=== PATIENT | male | born 1960 | race Hispanic/Latino ===

== ENCOUNTER 2018-10-31 16:19 | Emergency (ER) | payer BC ==
[2018-10-31] MEDS ORDERED: Ketorolac Tromethamine 30 MG/ML VIAL ONE (17:55)
[2018-10-31] MEDS ORDERED: predniSONE 20 MG TAB ONE (17:55)
== END 2018-10-31 18:34 | disposition home or self-care (01) ==
LOC: SCSER 16:19
DX: M54.6 Pain in thoracic spine (principal); I10 Essential (primary) hypertension; Z79.899 Other long term (current) drug therapy
CPT/HCPCS: 96372; J1885; J7512

== ENCOUNTER 2021-04-09 17:39 | Emergency (ER) | payer BC ==
[2021-04-09] MEDS ORDERED: Ibuprofen 800 MG TAB ONE (19:19)
== END 2021-04-09 20:57 | disposition home or self-care (01) ==
LOC: ERS 17:39
DX: R43.2 Parageusia (principal); R43.0 Anosmia; Z20.822 Contact with and (suspected) exposure to COVID-19; I10 Essential (primary) hypertension; E78.5 Hyperlipidemia, unspecified
CPT/HCPCS: 71045

== ENCOUNTER 2021-04-11 13:21 | Inpatient (IN) | payer BC ==
[~2021-04-11 13:21] MED LIST: Iopamidol-370 76% 500 ML 1 ML ONE
[2021-04-11] MEDS ORDERED: Dexamethasone 10 MG/ML VIAL ONE (14:52)
[2021-04-11 14:53] LABS: ALT (SGPT) 18 U/L (8-55); AST (SGOT) 26 U/L (5-34); Albumin 3.2 g/dL (3.5-5.0); Alkaline Phosphatase 85 U/L (40-110); Anion Gap 13 mmol/L (10-20); BUN (Urea Nitrogen) 9 mg/dL (8.4-25.7); Bilirubin, Total 0.6 mg/dL (0.2-1.2); Calc. Creatinine Clearance 0 mL/min (70-130); Calcium 7.8 mg/dL (7.8-10.44); Carbon Dioxide 25 mmol/L (22-29); Chloride 103 mmol/L (98-107); Globulin 2.7 g/dL (2.4-3.5); Glucose 185 mg/dL (70-105); Potassium 3.9 mmol/L (3.5-5.1); Protein, Total 5.9 g/dL (6.0-8.3); Sodium 137 mmol/L (136-145)
[2021-04-11 14:54] LABS: Lactic Acid 1.7 mmol/L (0.5-2.2)
[2021-04-11 14:55] LABS: #Lymphocytes 0.4 thou/uL (1.20-3.40); #Monocytes 0.1 thou/uL (0.11-0.59); #Neutrophils 11.1 thou/uL (1.40-6.50); %Lymphocytes 3.4 % (21.0-51.0); %Monocytes 1.2 % (0.0-10.0); %Neutrophils 95.5 % (42.0-75.0); Hemoglobin 12.5 g/dL (14.0-18.0); Mean Corpuscular HGB CONC 32.1 g/dL (32.0-36.0); Mean Corpuscular Hemoglobin 31.2 pg (27.0-31.0); Mean Corpuscular Volume 97.2 fL (78.0-98.0); Mean Platelet Volume 7.3 fL (7.4-10.4); Platelet Count 163 thou/uL (130-400); RBC Distribution Width 11.9 % (11.5-14.5); Red Blood Cell (RBC) Count 4.01 mill/uL (4.70-6.10); Troponin I Less than 0.010 ng/mL (< 0.028); White Blood Cell (WBC) Count 11.6 thou/uL (4.8-10.8)
[2021-04-11] MEDS ORDERED: Dextrose 50% Abboject 50 ML SYRINGE SLOW IVP PRN (15:10)
[2021-04-11] MEDS ORDERED: Dextrose 5% in Water 1,000 ML IV PRN (15:10)
[2021-04-11 16:08] VITALS: BMI 28.8
[2021-04-11] MEDS ORDERED: Pharmacy to Dose REMDESIVIR IVPB PRN (17:08)
[2021-04-11 17:11] LABS: Hemoglobin A1c 5.3 % (4.0-6.0)
[2021-04-11] MEDS: Dexamethasone 10 MG/ML VIAL SLOW IVP SCH (20:42)
[2021-04-11] MEDS: Acetaminophen 325 MG TAB PO PRN (20:42)
[2021-04-11] MEDS ORDERED: Famotidine 20 MG TAB PO SCH (21:00)
[2021-04-11 23:51] LABS: SARS-CoV-2 PCR by NAA DETECTED (NotDetected)
[2021-04-12 06:50] LABS: #Lymphocytes 0.5 thou/uL (1.20-3.40); #Monocytes 0.1 thou/uL (0.11-0.59); #Neutrophils 8.5 thou/uL (1.40-6.50); %Lymphocytes 5.1 % (21.0-51.0); %Monocytes 1.5 % (0.0-10.0); %Neutrophils 93.3 % (42.0-75.0); Hemoglobin 13.4 g/dL (14.0-18.0); Mean Corpuscular HGB CONC 33.3 g/dL (32.0-36.0); Mean Corpuscular Hemoglobin 32.6 pg (27.0-31.0); Mean Corpuscular Volume 97.8 fL (78.0-98.0); Mean Platelet Volume 7.2 fL (7.4-10.4); Platelet Count 182 thou/uL (130-400); RBC Distribution Width 11.9 % (11.5-14.5); Red Blood Cell (RBC) Count 4.11 mill/uL (4.70-6.10); White Blood Cell (WBC) Count 9.1 thou/uL (4.8-10.8)
[2021-04-12 07:13] LABS: Anion Gap 13 mmol/L (10-20); BUN (Urea Nitrogen) 14 mg/dL (8.4-25.7); Calc. Creatinine Clearance 114 mL/min (70-130); Calcium 8.5 mg/dL (7.8-10.44); Carbon Dioxide 25 mmol/L (22-29); Chloride 107 mmol/L (98-107); Glucose 175 mg/dL (70-105); Potassium 4.4 mmol/L (3.5-5.1); Sodium 141 mmol/L (136-145)
[2021-04-12] MEDS: Ascorbic Acid 500 mg Chewable Tablet PO SCH (07:57)
[2021-04-12] MEDS: Cholecalciferol (Vitamin D3) 400 UNITS TAB PO SCH (07:58)
[2021-04-12] MEDS: Enoxaparin Sodium 40 MG/0.4 ML SYRINGE SC SCH (07:58)
[2021-04-12] MEDS: Dexamethasone 10 MG/ML VIAL SLOW IVP SCH ×2 (07:58→20:42)
[2021-04-12] MEDS: Zinc Sulfate 220 MG CAP PO SCH (07:58)
[2021-04-12] MEDS ORDERED: Dexamethasone 4 MG TAB PO SCH (08:00)
[2021-04-12] MEDS ORDERED: Ezetimibe 10 MG TAB PO SCH (12:30)
[2021-04-12] MEDS ORDERED: Amlodipine 5 MG TAB PO SCH (12:30)
[2021-04-12] MEDS: HumaLOG 300 UNITS/3 ML VIAL SC PRN ×3 (12:38→20:57)
[2021-04-12] MEDS: Acetaminophen 325 MG TAB PO PRN (20:43)
[2021-04-13 07:12] LABS: #Lymphocytes 0.5 thou/uL (1.20-3.40); #Monocytes 0.2 thou/uL (0.11-0.59); %Basophils 0.1 % (0.0-1.0); %Eosinophils 0.1 % (0.0-10.0); %Lymphocytes 4.2 % (21.0-51.0); %Monocytes 1.8 % (0.0-10.0); %Neutrophils 93.8 % (42.0-75.0); Mean Corpuscular HGB CONC 31.4 g/dL (32.0-36.0); Mean Corpuscular Hemoglobin 30.7 pg (27.0-31.0); Mean Corpuscular Volume 97.7 fL (78.0-98.0); Platelet Count 272 thou/uL (130-400); RBC Distribution Width 11.8 % (11.5-14.5); Red Blood Cell (RBC) Count 4.24 mill/uL (4.70-6.10); White Blood Cell (WBC) Count 12.7 thou/uL (4.8-10.8)
[2021-04-13 07:29] LABS: Anion Gap 13 mmol/L (10-20); BUN (Urea Nitrogen) 17 mg/dL (8.4-25.7); Calc. Creatinine Clearance 109 mL/min (70-130); Calcium 8.7 mg/dL (7.8-10.44); Carbon Dioxide 24 mmol/L (22-29); Chloride 106 mmol/L (98-107); Glucose 192 mg/dL (70-105); Potassium 4.1 mmol/L (3.5-5.1); Sodium 139 mmol/L (136-145)
[2021-04-13] MEDS: Ascorbic Acid 500 mg Chewable Tablet PO SCH (08:25)
[2021-04-13] MEDS: Amlodipine 5 MG TAB PO SCH (08:25)
[2021-04-13] MEDS: Ezetimibe 10 MG TAB PO SCH (08:25)
[2021-04-13] MEDS: Cholecalciferol (Vitamin D3) 400 UNITS TAB PO SCH (08:25)
[2021-04-13] MEDS: Zinc Sulfate 220 MG CAP PO SCH (08:25)
[2021-04-13] MEDS: Acetaminophen 325 MG TAB PO PRN (08:26)
[2021-04-13] MEDS: Dexamethasone 10 MG/ML VIAL SLOW IVP SCH ×2 (08:26→21:13)
[2021-04-13] MEDS: Enoxaparin Sodium 40 MG/0.4 ML SYRINGE SC SCH ×2 (08:27→21:13)
[2021-04-13] MEDS ORDERED: Piperacillin/Tazobactam 3.375 GM in Sodium Chloride 0.9% 100 ML IVPB SCH ×2 (10:15→16:00)
[2021-04-13] MEDS ORDERED: Furosemide 100 MG/10 ML VIAL SLOW IVP SCH ×2 (10:30→13:00)
[2021-04-13] MEDS: Piperacillin/Tazobactam 3.375 GM in Sodium Chloride 0.9% 100 ML IVPB SCH ×3 (12:30→21:13)
[2021-04-13] MEDS: HumaLOG 300 UNITS/3 ML VIAL SC PRN ×3 (12:45→21:37)
[2021-04-13] MEDS: Furosemide 40 MG/4 ML VIAL SLOW IVP SCH (14:40)
[2021-04-13] MEDS: Vancomycin 1 GM in Premix Bag 1 BAG IVPB SCH (15:15)
[2021-04-13] MEDS ORDERED: VANCOMYCIN 1.25 GM/250 ML BAG 1.25 GM in Premix Bag 1 BAG IVPB SCH (21:00)
[2021-04-14] MEDS: Vancomycin 1 GM in Premix Bag 1 BAG IVPB SCH ×2 (02:41→13:03)
[2021-04-14] MEDS: Piperacillin/Tazobactam 3.375 GM in Sodium Chloride 0.9% 100 ML IVPB SCH ×3 (05:45→21:33)
[2021-04-14] MEDS: Furosemide 40 MG/4 ML VIAL SLOW IVP SCH ×2 (05:46→13:03)
[2021-04-14 06:55] LABS: Hemoglobin 14.3 g/dL (14.0-18.0); Mean Corpuscular HGB CONC 32.4 g/dL (32.0-36.0); Mean Corpuscular Hemoglobin 31.3 pg (27.0-31.0); Mean Corpuscular Volume 96.4 fL (78.0-98.0); Mean Platelet Volume 6.4 fL (7.4-10.4); Platelet Count 328 thou/uL (130-400); RBC Distribution Width 11.7 % (11.5-14.5); Red Blood Cell (RBC) Count 4.58 mill/uL (4.70-6.10); White Blood Cell (WBC) Count 12.7 thou/uL (4.8-10.8)
[2021-04-14 07:13] LABS: Anion Gap 14 mmol/L (10-20); BUN (Urea Nitrogen) 26 mg/dL (8.4-25.7); Calc. Creatinine Clearance 80 mL/min (70-130); Calcium 8.7 mg/dL (7.8-10.44); Carbon Dioxide 30 mmol/L (22-29); Chloride 101 mmol/L (98-107); Glucose 164 mg/dL (70-105); Sodium 141 mmol/L (136-145)
[2021-04-14 07:23] LABS: Band 12 % (5-11); Lymphocytes 1 % (21-51); MDiff Complete? YES; Monocytes 1 % (0-10); Neutrophil 86 % (42-75); Platelet Morphology Comment Appears Adequate; RBC Morphology Normal
[2021-04-14] MEDS: Ezetimibe 10 MG TAB PO SCH (08:36)
[2021-04-14] MEDS: Cholecalciferol (Vitamin D3) 400 UNITS TAB PO SCH (08:36)
[2021-04-14] MEDS: Zinc Sulfate 220 MG CAP PO SCH (08:36)
[2021-04-14] MEDS: Ascorbic Acid 500 mg Chewable Tablet PO SCH (08:36)
[2021-04-14] MEDS: Amlodipine 5 MG TAB PO SCH (08:37)
[2021-04-14] MEDS: Dexamethasone 10 MG/ML VIAL SLOW IVP SCH ×2 (08:37→21:45)
[2021-04-14] MEDS: Enoxaparin Sodium 40 MG/0.4 ML SYRINGE SC SCH ×2 (09:01→21:32)
[2021-04-14] MEDS: HumaLOG 300 UNITS/3 ML VIAL SC PRN (13:44)
[2021-04-14] MEDS ORDERED: Polyethylene Glycol 3350 17 GM Packet PO SCH (18:00)
[2021-04-14] MEDS: Senokot S 8.6-50 MG TAB PO SCH (21:46)
[2021-04-14] MEDS: Acetaminophen 325 MG TAB PO PRN (21:48)
[2021-04-15 01:14] LABS: Vancomycin, Trough 8.5 ug/mL
[2021-04-15] MEDS: VANCOMYCIN 1.25 GM/250 ML BAG 1.25 GM in Premix Bag 1 BAG IVPB SCH ×2 (02:50→17:05)
[2021-04-15] MEDS: Piperacillin/Tazobactam 3.375 GM in Sodium Chloride 0.9% 100 ML IVPB SCH ×3 (05:23→21:39)
[2021-04-15] MEDS: HumaLOG 300 UNITS/3 ML VIAL SC PRN ×3 (06:43→21:39)
[2021-04-15] MEDS: Vancomycin 1 GM in Premix Bag 1 BAG IVPB SCH (07:00)
[2021-04-15 07:35] LABS: Anion Gap 17 mmol/L (10-20); BUN (Urea Nitrogen) 30 mg/dL (8.4-25.7); Calc. Creatinine Clearance 81 mL/min (70-130); Calcium 8.5 mg/dL (7.8-10.44); Carbon Dioxide 28 mmol/L (22-29); Chloride 99 mmol/L (98-107); Glucose 217 mg/dL (70-105); Potassium 4.5 mmol/L (3.5-5.1); Sodium 139 mmol/L (136-145)
[2021-04-15 08:28] LABS: Hemoglobin 14.6 g/dL (14.0-18.0); Mean Corpuscular HGB CONC 33.5 g/dL (32.0-36.0); Mean Corpuscular Hemoglobin 32.1 pg (27.0-31.0); Mean Platelet Volume 6.3 fL (7.4-10.4); Platelet Count 353 thou/uL (130-400); RBC Distribution Width 11.4 % (11.5-14.5); Red Blood Cell (RBC) Count 4.53 mill/uL (4.70-6.10); White Blood Cell (WBC) Count 10.8 thou/uL (4.8-10.8)
[2021-04-15 08:29] LABS: Band 9 % (5-11); Lymphocytes 8 % (21-51); MDiff Complete? YES; Metamyelocyte 3 % (0-0); Monocytes 2 % (0-10); Neutrophil 77 % (42-75); Platelet Morphology Comment Appears Adequate; RBC Morphology Normal; Reactive Lymphocytes 1 % (0-10)
[2021-04-15] MEDS: Enoxaparin Sodium 40 MG/0.4 ML SYRINGE SC SCH ×2 (08:32→21:40)
[2021-04-15] MEDS: Amlodipine 5 MG TAB PO SCH (08:33)
[2021-04-15] MEDS: Dexamethasone 10 MG/ML VIAL SLOW IVP SCH (08:33)
[2021-04-15] MEDS: Zinc Sulfate 220 MG CAP PO SCH (08:33)
[2021-04-15] MEDS: Ezetimibe 10 MG TAB PO SCH (08:33)
[2021-04-15] MEDS: Cholecalciferol (Vitamin D3) 400 UNITS TAB PO SCH (08:33)
[2021-04-15] MEDS: Senokot S 8.6-50 MG TAB PO SCH ×3 (08:33→21:40)
[2021-04-15] MEDS: Ascorbic Acid 500 mg Chewable Tablet PO SCH (08:33)
[2021-04-16] MEDS: VANCOMYCIN 1.25 GM/250 ML BAG 1.25 GM in Premix Bag 1 BAG IVPB SCH ×2 (04:34→17:33)
[2021-04-16] MEDS: Chloraseptic Spray 180 ml Bottle PO PRN ×2 (04:35→20:40)
[2021-04-16] MEDS: Piperacillin/Tazobactam 3.375 GM in Sodium Chloride 0.9% 100 ML IVPB SCH ×3 (05:31→20:40)
[2021-04-16 07:20] LABS: #Lymphocytes 0.9 thou/uL (1.20-3.40); #Monocytes 0.6 thou/uL (0.11-0.59); #Neutrophils 6.5 thou/uL (1.40-6.50); %Eosinophils 0.4 % (0.0-10.0); %Lymphocytes 11.5 % (21.0-51.0); %Monocytes 7.9 % (0.0-10.0); %Neutrophils 80.2 % (42.0-75.0); Hemoglobin 13.1 g/dL (14.0-18.0); Mean Corpuscular Hemoglobin 31.8 pg (27.0-31.0); Mean Corpuscular Volume 96.4 fL (78.0-98.0); Mean Platelet Volume 6.1 fL (7.4-10.4); Platelet Count 343 thou/uL (130-400); RBC Distribution Width 11.4 % (11.5-14.5); Red Blood Cell (RBC) Count 4.12 mill/uL (4.70-6.10); White Blood Cell (WBC) Count 8.1 thou/uL (4.8-10.8)
[2021-04-16 07:37] LABS: Anion Gap 12 mmol/L (10-20); BUN (Urea Nitrogen) 20 mg/dL (8.4-25.7); Calc. Creatinine Clearance 92 mL/min (70-130); Calcium 8.1 mg/dL (7.8-10.44); Carbon Dioxide 28 mmol/L (22-29); Chloride 105 mmol/L (98-107); Glucose 104 mg/dL (70-105); Potassium 4.5 mmol/L (3.5-5.1); Sodium 140 mmol/L (136-145)
[2021-04-16] MEDS: Enoxaparin Sodium 40 MG/0.4 ML SYRINGE SC SCH ×2 (09:52→20:40)
[2021-04-16] MEDS: Cholecalciferol (Vitamin D3) 400 UNITS TAB PO SCH (09:52)
[2021-04-16] MEDS: Ezetimibe 10 MG TAB PO SCH (09:52)
[2021-04-16] MEDS: Amlodipine 5 MG TAB PO SCH (09:52)
[2021-04-16] MEDS: Ascorbic Acid 500 mg Chewable Tablet PO SCH (09:52)
[2021-04-16] MEDS: Zinc Sulfate 220 MG CAP PO SCH (09:52)
[2021-04-16] MEDS: Senokot S 8.6-50 MG TAB PO SCH ×2 (09:53→20:40)
[2021-04-16] MEDS: Dexamethasone 10 MG/ML VIAL SLOW IVP SCH (09:53)
[2021-04-16] MEDS: Acetaminophen 325 MG TAB PO PRN (11:36)
[2021-04-16] MEDS: Benzonatate 100 MG CAP PO PRN ×2 (11:37→20:46)
[2021-04-16] MEDS: HumaLOG 300 UNITS/3 ML VIAL SC PRN ×3 (13:48→20:40)
[2021-04-16 16:51] LABS: Vancomycin, Trough 8.9 ug/mL
[2021-04-16] MEDS: VANCOMYCIN 1.75 GM/350 ML BAG 1.75 GM in Premix Bag 1 BAG IVPB SCH (17:49)
[2021-04-16] MEDS ORDERED: Melatonin 3 MG TAB PO PRN (20:44)
[2021-04-17] MEDS: Piperacillin/Tazobactam 3.375 GM in Sodium Chloride 0.9% 100 ML IVPB SCH ×2 (03:36→13:38)
[2021-04-17] MEDS: VANCOMYCIN 1.75 GM/350 ML BAG 1.75 GM in Premix Bag 1 BAG IVPB SCH (05:53)
[2021-04-17 08:27] LABS: Hemoglobin 12.5 g/dL (14.0-18.0); Mean Corpuscular HGB CONC 32.7 g/dL (32.0-36.0); Mean Corpuscular Hemoglobin 31.1 pg (27.0-31.0); Mean Corpuscular Volume 95.3 fL (78.0-98.0); Mean Platelet Volume 6.3 fL (7.4-10.4); Platelet Count 385 thou/uL (130-400); RBC Distribution Width 11.4 % (11.5-14.5); Red Blood Cell (RBC) Count 4.03 mill/uL (4.70-6.10); White Blood Cell (WBC) Count 7.5 thou/uL (4.8-10.8)
[2021-04-17 08:28] LABS: Anion Gap 10 mmol/L (10-20); BUN (Urea Nitrogen) 21 mg/dL (8.4-25.7); Calc. Creatinine Clearance 117 mL/min (70-130); Calcium 7.9 mg/dL (7.8-10.44); Carbon Dioxide 24 mmol/L (22-29); Chloride 105 mmol/L (98-107); Glucose 125 mg/dL (70-105); Sodium 135 mmol/L (136-145)
[2021-04-17] MEDS: Ascorbic Acid 500 mg Chewable Tablet PO SCH (08:47)
[2021-04-17] MEDS: Enoxaparin Sodium 40 MG/0.4 ML SYRINGE SC SCH (08:47)
[2021-04-17] MEDS: Ezetimibe 10 MG TAB PO SCH (08:48)
[2021-04-17] MEDS: Senokot S 8.6-50 MG TAB PO SCH (08:48)
[2021-04-17] MEDS: Zinc Sulfate 220 MG CAP PO SCH (08:48)
[2021-04-17] MEDS: Amlodipine 5 MG TAB PO SCH (08:48)
[2021-04-17] MEDS: Cholecalciferol (Vitamin D3) 400 UNITS TAB PO SCH (08:48)
[2021-04-17] MEDS: Dexamethasone 10 MG/ML VIAL SLOW IVP SCH (08:51)
[2021-04-17 09:04] LABS: MDiff Complete? YES
[2021-04-17 09:05] LABS: Band 6 % (5-11); Lymphocytes 9 % (21-51); Metamyelocyte 4 % (0-0); Monocytes 9 % (0-10); Myelocyte 3 % (0-0); Neutrophil 69 % (42-75); Nucleated RBC 2 % (0); Platelet Morphology Comment Appears Adequate; Polychromasia SLIGHT = 2-3 cells (100X) (0-2/hpf)
[2021-04-17 13:51] VITALS: BP 132/74; TEMP 98.8
== END 2021-04-17 14:16 | disposition home or self-care (01) | DRG 177 ==
LOC: ERS 13:21 → T4-B 14:21
PROVIDERS: ADMIT Internal Medicine; ATTEND Hospitalist
PROC: 8E0ZXY6 Isolation (ICD-10-PCS; principal; 2021-04-11)
PROC: 3E0333Z Introduction of Anti-inflammatory into Peripheral Vein, Percutaneous Approach (ICD-10-PCS; 2021-04-11)
DX: U07.1 COVID-19 (principal); J96.01 Acute respiratory failure with hypoxia; J12.82 Pneumonia due to coronavirus disease 2019; I10 Essential (primary) hypertension; E78.5 Hyperlipidemia, unspecified; R73.9 Hyperglycemia, unspecified; D64.9 Anemia, unspecified; Z79.899 Other long term (current) drug therapy; R43.2 Parageusia; R43.0 Anosmia
CPT/HCPCS: 36415; 36416; 71045; 71275; 80048; 80053; 80202; 82728; 83036; 83605; 83880; 84145; 84484; 85025; 85379; 86140; 87040; 93005; J1100; J1650; J1815; J1940; J2543; J3370; J3490; Q9967; U0003; U0005

== ENCOUNTER 2021-04-28 12:10 | Outpatient (CLI) | payer BC | END 2021-04-28 12:11 | disposition home or self-care (01) | LOC: ULT 12:10 | PROVIDERS: ATTEND Family Medicine | DX: M79.604 Pain in right leg (principal) ==